=== PATIENT | female | born 1970 | race Caucasian/White ===

== ENCOUNTER 2017-03-28 02:43 | Outpatient (CLI) | payer OTHER ==
[~2017-03-28 02:43] MED LIST: AMBIEN10 MG PO; GABAPENTIN100 MG PO
--- NOTE | 2017-03-28 03:26 | NUR ---
REC'D REPORT FROM [facility] [place]. BROUGHT HERE BY AMBULANCE. ALERT AND ORIENTED X4. DENIES PAIN AT THIS TIME. DENIES NEEDS AT THIS TIME. DAUGHTER IS AT BEDSIDE. HAS AN 18G TO THE RIGHT AC. FLUIDS ARE ORDERED AT 100/HR. INSTRUCTED TO CALL IF NEEDED ANYTHING. BED LOW, LOCKED, CALL LIGHT IN REACH.
--- NOTE | 2017-03-28 03:36 | NUR ---
NOTIFIED JC WARREN THAT ADMIT WAS HERE FOR THE ADMISSION ASSESSMENT.
[2017-03-28 03:48] LABS: BASOPHILS 0 % (0-2); EOSINOPHILS 0.3 % (0-7); HEMATOCRIT 35.1 % (36.0-48.0); HEMOGLOBIN 11.7 g/dL (12-16); IMMATURE GRANULOCYTES 0.3 % (0-5); LYMPHOCYTES 14.5 % (15-50); MCH 31.5 pg (26.0-34.0); MCHC 33.3 g/dL (31.0-37.0); MCV 94.6 fL (80.0-100.0); MEAN PLATELET VOLUME 10.2 fL (7.4-10.4); NEUTROPHILS 75.9 % (40-80); PLATELET COUNT 137 10x3/uL (130-400); RBC 3.71 10x6/uL (4.00-5.40); RDW 12.4 % (11.5-14.5); WBC 3.7 10x3/uL (4.8-10.8)
[2017-03-28 03:58] LABS: CALC OSMOLALITY 276 mosm/kg (275-300); CALCIUM 8.2 mg/dL (8.5-10.1); CARBON DIOXIDE 22.6 mmol/L (21.0-32.0); CHLORIDE - SERUM 104 mmol/L (98-107); CREATININE - SERUM 0.7 mg/dL (0.6-1.3); GLUCOSE 108 mg/dL (74-106); POTASSIUM - SERUM 3.9 mmol/L (3.5-5.1); SODIUM 138 mmol/L (136-145); UREA NITROGEN 12 mg/dL (7-18); eGFR NON AFRICAN AMERICAN > 90 mL/min (90-120)
[2017-03-28 03:59] LABS: INR 1.1 (0.85-1.17); PROTIME 14.1 SECONDS (11.6-15.0)
[2017-03-28 05:40] VITALS: BP 138/81; BMI 22.1
--- NOTE | 2017-03-28 05:46 | NUR ---
STARTED PLASMA AT 0535. VITALS WERE 99.3, 78, 96%, 103/56 BEFORE INFUSION STARTED. WILL CONT TO MONITOR.
--- NOTE | 2017-03-28 06:00 | NUR ---
WAS TOLD PER JC RODRIGUEZ TO GO AHEAD AND TRANSFUSE THE PLASMA AND PLATELET SO THAT SHE CAN CLOT. HAVE PLASMA RUNNING AT 100ML/HR.
--- NOTE | 2017-03-28 12:23 | NUR ---
PT HAD A BM. STOOL COLLECTED FOR CULTURES AND TAKEN TO LAB.
[2017-03-28 12:33] VITALS: BP 108/65
[2017-03-28 14:38] VITALS: BMI 22.1
--- NOTE | 2017-03-28 16:29 | NUR ---
PT IS RESTING IN BED. VSS. FINISHING UP PLATELETS. DAUGHTER AT BEDSIDE. BED IS LOW, SIDE RAILS UP X 2 AND CALL LIGHT IN REACH.
--- NOTE | 2017-03-28 18:42 | NUR ---
RECEIVED BENTYL FROM PHARMACY. GIVEN TO PT.
--- NOTE | 2017-03-28 19:36 | NUR ---
PT LYING IN BED VISITING WITH OTHER PERSON IN ROOM. VERBALIZED THAT FEVER MAY HAVE BROKEN BECAUSE SHE FELT BETTER. PT'S FRIEND INQUIRED ON WHY PT STILL RECIEVING FLAGYL NO SIGNS OF DISTRESS. PT BED IN LOW POSITION, CALL LIGHT IN REACH
[2017-03-28 20:00] VITALS: BP 119/80
--- NOTE | 2017-03-28 21:26 | NUR ---
PT READY FOR AMBIEN AND NIGHT TIME MEDS, ADMIN PT SCHEDULE MEDS ALONG WITH PRN MEDS. NO OTHER NEEDS AT THIS TIME, CONTINUE WITH PLAN OF CARE
[2017-03-29] VITALS: BP 119/72
--- NOTE | 2017-03-29 03:51 | NUR ---
PT COMPLAINS OF NAUSEA AND UPSET STOMACH, DAUGHTER STATED PT HAS INCREASE BLOOD IN STOOL AND WANTED SOMETHING MORE DONE. WILL GET WITH CHARGE TO SEE WHAT ESLE CAN BE DONE AT THIS TIME. CONTINUE WITH CARE PLAN
[2017-03-29 04:00] VITALS: BP 109/62
--- NOTE | 2017-03-29 04:53 | NUR ---
ASSESSED, PT REMAINS IN ISOLATION AND IS UP TO BATHROOM AT THIS TIME. FAMILY REMAINS IN THE ROOM WITH PATIENT. THE BED IS LOW, RAILS UP X'S 2 WITH THE CALL LIGHT AT HAND.NO NEEDS VOICED.
[2017-03-29 06:59] LABS: HEMATOCRIT 31.9 % (36.0-48.0); HEMOGLOBIN 10.4 g/dL (12-16); MCHC 32.6 g/dL (31.0-37.0); MCV 95.2 fL (80.0-100.0); MEAN PLATELET VOLUME 10.4 fL (7.4-10.4); PLATELET COUNT 146 10x3/uL (130-400); RBC 3.35 10x6/uL (4.00-5.40); RDW 12.5 % (11.5-14.5)
--- NOTE | 2017-03-29 07:00 | NUR ---
REPORT RECIEVED ASSUMED CARE. PATIENT IN BED WITH IV INTACT. NO COMPLAINTS. FAMILY AT BEDSIDE. CALL LIGHT WITHIN REACH.
[2017-03-29 07:03] LABS: WBC 2.4 10x3/uL (4.8-10.8)
[2017-03-29 07:13] LABS: CALC OSMOLALITY 278 mosm/kg (275-300); CALCIUM 8.1 mg/dL (8.5-10.1); CARBON DIOXIDE 25.1 mmol/L (21.0-32.0); CHLORIDE - SERUM 108 mmol/L (98-107); CREATININE - SERUM 0.7 mg/dL (0.6-1.3); GLUCOSE 97 mg/dL (74-106); POTASSIUM - SERUM 3.6 mmol/L (3.5-5.1); SODIUM 141 mmol/L (136-145); eGFR NON AFRICAN AMERICAN > 90 mL/min (90-120)
[2017-03-29 07:14] LABS: UREA NITROGEN 6 mg/dL (7-18)
[2017-03-29 07:37] LABS: EOSINOPHILS 3 % (0-7); LYMPHOCYTES 38 % (15-50); MONOCYTES 7 % (2-11); NEUTROPHILS 46 % (40-80); PLATELET ESTIMATE NORMAL
[2017-03-29 08:00] VITALS: BP 109/67
--- NOTE | 2017-03-29 09:30 | NUR ---
GAVE PATIENT TYLENOL ALONG WITH MORNING MEDS PER REQUEST OF PATIENT. TEMP 99.6 EXPLAINED TO PATIENT THAT ORDERS STATE TO GIVE IF GREATER THAN 100. VERBALIZED UNDERSTANDING. FAMILY AT BEDSIDE. CALL LIGHT WITHIN REACH.
[2017-03-29 12:29] VITALS: BP 116/82
--- NOTE | 2017-03-29 12:30 | NUR ---
PATIENT TOLERATED SMALL AMOUNT OF BROTH AT THIS TIME. NO COMPLAINTS. IV INTACT. CALL LIGHT WITHIN REACH.
--- NOTE | 2017-03-29 16:05 | NUR ---
PHYSICIAN STATED OK FOR DC
[2017-03-29 16:13] VITALS: BP 141/82
--- NOTE | 2017-03-29 17:20 | NUR ---
PATIENT RECIEVED DC INSTRUCTIONS. VERBALIZED UNDERSTANDING. NO QUESTIONS AT THIS TIME. IV REMOVED WITH CATH TIP INTACT. CALL LIGHT WITHIN REACH.
--- NOTE | 2017-03-29 17:24 | NUR ---
PATIENT AMBULATED OUT OF HOSPITAL AT THIS TIME. REFUSED WHEELCHAIR. ESCORTED BY WITH PERSONAL BELONGINGS.
== END 2017-03-29 17:28 | disposition home or self-care (01) ==
LOC: D.OPS → D.MS 02:43 → D.OPS 02:43 → D.MS 02:50 → D.OPS 03-29 17:28
PROVIDERS: Internal Medicine Gastroenterology
DX: K92.2 Gastrointestinal hemorrhage, unspecified (principal); J11.1 Influenza due to unidentified influenza virus with other respiratory manifestations; F17.200 Nicotine dependence, unspecified, uncomplicated; Z98.890 Other specified postprocedural states; K91.840 Postprocedural hemorrhage of a digestive system organ or structure following a digestive system procedure; Z01.812 Encounter for preprocedural laboratory examination